=== PATIENT | female | born 1955 | race Caucasian/White ===

== ENCOUNTER 2018-03-24 09:38 | Day surgery (SDC) | payer BC ==
[~2018-03-24 09:38] MED LIST: KETOROLAC TROMETHAMINE 0.45% 4 DROP/0.4 ML DROPERETTE OD PRN; MIDAZOLAM 2 MG/2 ML INJ ONE
[2018-03-24] MEDS: TETRACAINE HCL 0.5% OPH SOLN 0.6 ML DROPERETTE OD PRN ×4 (10:32→11:05)
[2018-03-24] MEDS: BESIFLOXACIN HCL 0.6% OPH SUSP 5 ML BOTTLE OD PRN ×4 (10:33→11:28)
[2018-03-24] MEDS: TROPICAMIDE 1% OPH SOLN 3 ML OD PRN ×3 (10:33→10:53)
[2018-03-24] MEDS: CYCLOPENTOLATE 0.2%/PHENYLEPHRINE 1% OPH SOLN 2 ML OD PRN ×3 (10:33→10:53)
[2018-03-24] MEDS: LIDOCAINE 1% INJ-PF (10 MG/ML) 30 ML SDV ONE ×2 (10:52→11:13)
[2018-03-24] MEDS: TOBRAMYCIN SULFATE/DEXAMETH OPH OINTMENT 3.5 GM ONE ×2 (10:54→11:28)
[2018-03-24] MEDS: CHONDR SU A NA/HYALUR INTRAOC KIT (SURGICARE) ONE ×2 (10:55→11:13)
[2018-03-24] MEDS: EPINEPHRINE INJ/PF 1 MG/1 ML AMPULE ONE ×2 (10:55→11:13)
[2018-03-24] MEDS ORDERED: TRYPAN BLUE 0.06 % OPH SOLN 0.5 ML DISP.SYRIN ONE (11:10)
== END 2018-03-24 12:14 | disposition home or self-care (01) ==
LOC: SC 09:38
PROVIDERS: ATTEND Ophthalmology
DX: H25.11 Age-related nuclear cataract, right eye (principal); I10 Essential (primary) hypertension; Z79.899 Other long term (current) drug therapy
CPT/HCPCS: 66984; V2630; J2250; J3490 ×4; J0171; 142